=== PATIENT | male | born 1965 | race Caucasian/White ===

== ENCOUNTER 2025-02-01 15:59 | Emergency (ER) | payer OTHER, SELFPAY ==
[2025-02-01 16:03] VITALS: BP 185/109; PULSE 91; RESP 18; TEMP 37.4; O2SAT 96; BMI 51.7
--- NOTE | 2025-02-01 16:13 | ED.GENADULT ---
HPI - General Adult General Chief complaint: Skin/Abscess/Foreign Body Stated complaint: screw stuck in stomach Time Seen by Provider: 02/01/25 16:07 History of Present Illness HPI narrative: Patient presents to the emergency department complaining of a screw being stabbed into his abdomen. Patient states today at about 1515 he was working and a screw that was poking out of a board got snagged under his gear and stabbed into his abdomen. Patient at 1630 is officially retired as this was his last day of work. 59-year-old man presenting to the emergency department with concern of a screw stuck in his abdomen Screw is Inch and a quarter long with a cutting tip. He would anticipate that 3/8 in is in his abdomen. Tried to remove it but it hurt a little much; thought he should just be checked out maybe some anesthetic to help with removal. Related Data Home Medications ?Medication ?Instructions ?Recorded ?Confirmed atenolol .ROUTE 02/01/25 losartan .ROUTE 02/01/25 metformin .ROUTE 02/01/25 niacin-lovastatin PO 02/01/25 Allergies Allergy/AdvReac Type Severity Reaction Status Date / Time No Known Drug Allergies Allergy Verified 02/01/25 16:11 Review of Systems Status of ROS: Reports: 6 or more systems reviewed and unremarkable except as noted in History and below Exam Narrative: Exam Narrative: Very pleasant. NAD. Clean black wood screw poking out of umbilical area. No active bleeding. Mildly sore to manipulation. Const: Vital Signs, click to edit/add: Vital Signs - 24 hr 02/01/25 16:03 Temperature 99.4 F Pulse Rate [Right Pulse Oximeter] 91 Respiratory Rate 18 Blood Pressure [Ri ght Upper Arm] 185/109 H Pulse Oximetry 96 Oxygen Delivery Me thod Room Air Documenting provider has reviewed patient's vital signs: yes Course Vital Signs Vital signs: Initial Vital Signs Temperature 99.4 F 02/01/25 16:03 Temperature Source Temporal Artery Scan 02/01/25 16:03 Pulse Rate 91 02/01/25 16:03 Pulse Rhythm Regular 02/01/25 16:03 Pulse Strength 3+ Normal 02/01/25 16:03 Respiratory Rate 18 02/01/25 16:03 Blood Pressure 185/109 H 02/01/25 16:03 Blood Pressure Mean 134 H 02/01/25 16:03 Blood Pressure Position Sitting 02/01/25 16:03 Pulse Oximetry 96 02/01/25 16:03 Oxygen Delivery Method Room Air 02/01/25 16:03 Vital Signs Temperature 99.4 F 02/01/25 16:03 Pulse Rate 91 02/01/25 16:03 Respiratory Rate 18 02/01/25 16:03 Blood Pressure 185/109 H 02/01/25 16:03 Pulse Oximetry 96 02/01/25 16:03 Oxygen Delivery Method Room Air 02/01/25 16:03 Temperature 99.4 F 02/01/25 16:03 Pulse Rate 91 02/01/25 16:03 Respiratory Rate 18 02/01/25 16:03 Blood Pressure 185/109 H 02/01/25 16:03 Pulse Oximetry 96 02/01/25 16:03 Oxygen Delivery Method Room Air 02/01/25 16:03 Medical Decision Making MDM Narrative Medical decision making narrative: Injected lidocaine with epinephrine along side the screw. Removed without significant difficulty by unscrewing and pulling. Was fairly well adhered to tissue. Considering body habitus there should not be risk of visceral puncture 01/01 opening in skin. Would not suture this closed Then irrigated with normal saline under light pressure. Antibiotic ointment and Band-Aid placed. See patient discharge plan for further discussion Watch for purulent drainage, marked increase in swelling or pain, spreading redness after [address] antibiotic ointment and a Band-Aid for the next 5 days or so and then to a dry dressing/Band-Aid for a few more days. [place] on your [place] [facility]. Discharge Plan Discharge Clinical Impression: Foreign body in skin Patient Disposition: Home, Self-Care Condition: Improved Additional Instructions: Watch for purulent drainage, marked increase in swelling or pain, spreading redness after [address] antibiotic ointment and a Band-Aid for the next 5 days or so and then to a dry dressing/Band-Aid for a few more days. Best wishes on your [place] [facility]. Prescriptions: No Action metformin .ROUTE atenolol .ROUTE losartan .ROUTE niacin-lovastatin PO Stand Alone Forms: [facility] Inst[facility]
--- OUTSIDE RECORDS SUMMARY | 2025-02-01 17:10 | XMS_ITS | Clinical Summary ---
Author Organization [facility] Address [address] [place] [id number] Care Team Providers Care Buttonhole Facer Name Role Phone Reagan Tom MD Primary Care Provider Allergies Active Allergy Reactions Criticality Noted Date Comments Cyclobenzaprine Diarrhea,Nausea And Vomiting Medications aspirin enteric coated 81 mg tablet Take 1 tablet by mouth once daily with a meal. 0 4 Active cholecalciferol (VITAMIN D) 1,000 unit capsuleIndications :Vitamin D deficiency Take 1 capsule by mouth once daily. 0 5 Active blood sugar diagnostic (ONETOUCH VERIO) stripIndications:C ontrolled type 2 diabetes mellitus without complication, without long-term current use of insulin (HC) Dispense test strips covered by the patient insurance. Test 3 times per day. 100 Strip 12 8 Active lancets 33 gauge miscIndications:Co ntrolled type 2 diabetes mellitus without complication, without long-term current use of insulin (HC) As directed. 100 Each 12 8 Active ACCU-CHEK GUIDE ME GLUCOSE MTRIndications:Con trolled type 2 diabetes mellitus without complication, without long-term current use of insulin (HC) TEST ONCE DAILY 1 Device 0 Active ACCU-CHEK FASTCLIX LANCET DRUMIndications:Co ntrolled type 2 diabetes mellitus without complication, without long-term current use of insulin (HC) TEST ONCE DAILY 100 Each 3 0 Active ACCU-CHEK GUIDE TEST STRIPS stripIndications:C ontrolled type 2 diabetes mellitus without complication, without long-term current use of insulin (HC) TEST ONCE PER DAY 100 Strip 3 0 Active hydrocortisone (HYTONE) 2.5 % ointmentIndication s:Acute eczema APPLY TOPICALLY TO AFFECTED AREA(S) TWO TIMES A DAY 60 g 2 0 Active ammonium lactate 12% (LACHYDRIN) 12 % creamIndications:D ry skin Apply topically to affected area(s) 2 times daily. 140 g 2 Active BIPAPIndications:O SA (obstructive sleep apnea) BIPAP machine for home use at pressure: 14/10 cmw , full face mask x1/3month with a full face cushion x1/mo 1 Each 11 4 Active buPROPion (WELLBUTRIN SR) 100 mg Sustained-Release tabletIndications: Depression, major, in remission Take 1 Tablet (100 mg) by mouth once daily in the morning. 30 Tablet 3 5 Active lovastatin (MEVACOR) 20 mg tabletIndications: Mixed hyperlipidemia TAKE ONE TABLET BY MOUTH AT BEDTIME 90 Tablet 1 5 Active metFORMIN (GLUCOPHAGE XR) 500 mg Extended-Release tabletIndications: Controlled type 2 diabetes mellitus without complication, without long-term current use of insulin (HC) TAKE ONE TABLET BY MOUTH EVERY EVENING 90 Tablet 5 Active losartan (COZAAR) 25 mg tabletIndications: Essential hypertension with goal blood pressure less than 130/80 TAKE ONE TABLET BY MOUTH EVERY DAY 90 Tablet 5 Active atenoloL (TENORMIN) 50 mg tabletIndications: Essential hypertension with goal blood pressure less than 130/80 TAKE ONE TABLET BY MOUTH EVERY DAY 90 Tablet 5 Active Active Problems Problem Noted Date Diagnosed Date Encounter for screening colonoscopy 01/13/2024 Controlled type 2 diabetes m ellitus without complication, without long-term current use of insulin 04/15/2022 Generalized anxiety disorder 07/27/2018 Alcohol abuse 07/27/2018 Lumbar foraminal stenosis 08/18/2016 CADY 03/2015 AHI-113, non-supine 08/05/2016 Arthritis, lumbar spine 07/25/2016 Midline low back pain with left-sided sciatica 1 Ganglion, left wrist 06/10/2016 REBECA (generalized anxiety disorder) 05/19/2016 Asymmetrical left sensorineural hearing loss Rash and other nonspecific skin eruption 012 Morbid obesity 01/09/2011 GERD (gastroesophageal reflux disease) 9 Major depressive disorder, recurrent episode, mo derate 01/11/2009 Dysthymic disorder 01/11/2009 Other malaise and fatigue 08/23/2008 Mixed hyperlipidemia 08/23/2008 Seasonal affective disorder 08/23/2008 Unspecified essential hypertension 10/07/2007 Resolved Problems Problem Noted Date Diagnosed Date Resolved Date Severe recurrent major depre ssion without psychotic features 07/27/2018 07/27/2021 Vitamin D deficiency 12/31/2008 017 Encounters Date Type Department Care Team Description 01/03/[address] [phone] Reagan Tom MD Refill Request (Atenolol) 12/29/[address] [address] Reagan Tom MD Refill Request (Losartan, Atenolol) 12/17/[address] [phone] Reagan Tom MD Refill Request (Metformin) 11/12/[address] [address] Reagan Tom MD Refill Request (Lovastatin) 11/03/2024 2:50 PM BUTTERMILK DRIER OPERATOR Office Visit [address] [phone] Reagan Tom MD Physical; Immunization/Injectio n 11/03/2024 Travel from Last 3 Months Immunizations Immunization Administration Dates Next Due COVID-19 VACCINE SPIKEVAX (M ODERNA 50MCG/0.5ML) 12YO+ PFS 11/03/2024,10/15/2023 COVID-19 vaccine (PDP [employer] NTech 30mcg/0.3mL) 12YO+ BIVALENT PF, MDV 09/12/2022 COVID-19 vaccine ([employer] 30mcg/0.3mL) PF, MDV 01/22/2021,01/01/2021 INFLUENZA, IIV3 PF (AGE >= 6 MO) 11/03/2024 Influenza, IIV3 (Age >=3 years) 09/12/2013 Influenza, IIV4 10/15/2023,,07/26/2021,2019,08/03/2018,07/21/2016 Td (Age >=7 Years) 04/30/2005 Tdap 06/20/2011 Zoster (Shingrix-RZV, recombinant) 09/12/2022, Family History Medical History Relation Name Comments Diabetes Father Hypertension Father in sleep Cancer Maternal Grandfather Good Health Mother Relation Name Status Comments Father (Age 74) Maternal Grandfather Mother Alive Social History Tobacco Use Types Packs/Day Years Used Date Smoking Tobacco: Never Smokeless Tobacco: Current Snuff, Chew Last attempted to quit: 10/12/2013 Tobacco Cessation:Ready to Q uit: No; Counseling Given: Yes Comments:on and off since 2000 Alcohol Use Standard Drinks/Week Comments Yes 24 (1 standard drink = 0.6 oz pu re alcohol) case of beer per week PHQ-2 Answer Date Recorded PHQ-2 TOTAL SCORE 6 11/03/2024 Financial Resource Strain Answer Date R ecorded Difficulty of Paying Living Expenses Not on file 10/19/2021 Difficulty of Paying Living Expenses Not on file 10/19/2021 Sex and Gender Information Value Date Recorded Sex Assigned at Not on file Legal Sex Male 5:23 AM BUTTERMILK DRIER OPERATOR Gender Identity Not on file Sexual Orientation Not on file 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 Not on file Not on file Not on file Obstetrics History Last Filed Vital Signs Vital Sign Reading Time Taken Comments Blood Pressure 120/74 11/03/2024 2:16 PM BUTTERMILK DRIER OPERATOR Pulse 76 11/03/2024 2:16 PM BUTTERMILK DRIER OPERATOR Temperature 36.7 C (98.1 F) 10/24/2024 1:10 PM BUTTERMILK DRIER OPERATOR Respiratory Rate 20 11/03/2024 2:16 PM BUTTERMILK DRIER OPERATOR Oxygen Saturation 97% 10/24/2024 1:1 0 PM BUTTERMILK DRIER OPERATOR Inhaled Oxygen Concentration - - Weight 165.3 kg (364 lb 8 oz) 2:16 PM BUTTERMILK DRIER OPERATOR Height 177.2 cm (5' 9.75) 11/03/2024 2 :16 PM BUTTERMILK DRIER OPERATOR with boots on Body Mass Index 52.68 11/03/2024 2:16 PM BUTTERMILK DRIER OPERATOR Plan of Treatment Health Maintenance Due Date Last Done Comments HIV for age 15-65 1978 Pneumococcal series for age 50+ (1 of 2 - PCV) 1982 Tetanus booster 06/20/2021 06/20/2011, 04/30/2005 RSV vaccine for adults or (1 - Risk 60-74 years 1-dose series) 2023 BMI (ht and wt on same day) for age 18+ 11/03/2025 11/03/2024, 03/24/2024, 10/15/2023, Additional history exists Depression screening for age 12+ 11/03/2025 11/03/2024, 10/15/2023, 09/15/2022, Additional history exists Lipids for age 45-75 11/03/2029 11/03/2024, 10/15/2023, 09/15/2022, Additional history exists Colonoscopy through age 75 01/12/2034 01/13/2024, Tdap Completed 06/20/2011 Hepatitis C screening for ag e 18-79 Completed 02/09/2015 Zoster (shingles) series for age 50+ Completed 09/12/2022, 07/26/2021 COVID-19 vaccine series Completed 11/03/19, 10/15/2023, 09/12/2022, Additional history exists Influenza Vaccine Completed 11/03/2024, , 09/12/2022, Additional history exists Procedures Procedure Name Priority Date/Time Associated Diagnosis Comments HEMOGLOBIN A1C Routine 11/03/2024 3:29 PM BUTTERMILK DRIER OPERATOR Controlled type 2 diabetes mellitus without complication, without long-term current use of insulin (HC) BASIC METABOLIC PANEL Routine 11/03/2024 3:29 PM BUTTERMILK DRIER OPERATOR Essential hypertension with goal blood pressure less than 130/80 LIPID PANEL W REFLEX MEASURED LDL Routine 11/03/2024 3:29 PM BUTTERMILK DRIER OPERATOR Mixed hyperlipidemia COLONOSCOPY 01/13/2024 10:56 AM CDT ANTI HCV Routine 02/09/2015 7:50 AM CDT Routine general medical examination at a health care facility from Last 3 Months or Most Recently Relevant to Health Maintenance Results * (ABNORMAL) HEMOGLOBIN A1C (11/03/2024 3:29 PM BUTTERMILK DRIER OPERATOR) HEMOGLOBIN A1C 7.3(H) <5.7 % of total Hgb [facility] Comment: For someone without known diabetes, a hemoglobin A1c value of 6.5% or greater indicates that they may have diabetes and this should be confirmed with a follow-up test. For someone with known diabetes, a value <7% indicates that their diabetes is well controlled and a value greater than or equal to 7% indicates suboptimal control. A1c targets should be individualized based on duration of diabetes, age, comorbid conditions, and other considerations. Currently, no consensus exists regarding use of hemoglobin A1c for diagnosis of diabetes for children. Blood BLOOD SPECIMEN / Unknown 11/03/2024 3:29 PM BUTTERMILK DRIER OPERATOR 11/03/2024 3:32 PM BUTTERMILK DRIER OPERATOR Narrative [facility] - 11/04/2024 5:09 AM BUTTERMILK DRIER OPERATOR FASTING:NO FASTING: NO Reagan Tom MD CHEMISTRY Final Result [facility] [address] [place] [address], [facility] [address] [place] [address] * (ABNORMAL) LIPID PANEL W REFLEX MEASURED LDL (11/03/2024 3:29 PM BUTTERMILK DRIER OPERATOR) CHOLESTEROL, TOTAL 174 <200 mg/dL [facility] HDL CHOLESTEROL 37(L) > OR = 40 mg/dL [facility] TRIGLYCERIDES 147 <150 mg/dL [facility] LDL-CHOLESTEROL 111(H) mg/dL (calc) [facility] Comment: Reference range: <100 Desirable range <100 mg/dL for primary prevention; <70 mg/dL for patients with CHD or diabetic patients with > or = 2 CHD risk factors. LDL-C is now calculated using the Moises calculation, which is a validated novel method providing better accuracy than the Friedewald equation in the estimation of LDL-C. Michael RODARTE et al. SIMÓN. 2013;310(19): 7166-4346 (http://education.[employer]/faq/GNH003) CHOL/HDLC RATIO 4.7 <5.0 (calc) [facility] NON HDL CHOLESTEROL 137(H) <130 mg/dL (calc) [facility] Comment: For patients with diabetes plus 1 major ASCVD risk factor, treating to a non-HDL-C goal of <100 mg/dL (LDL-C of <70 mg/dL) is considered a therapeutic option. Blood BLOOD SPECIMEN / Unknown 11/03/2024 3:29 PM BUTTERMILK DRIER OPERATOR 11/03/2024 3:32 PM BUTTERMILK DRIER OPERATOR Narrative [facility] - 11/04/2024 5:09 AM BUTTERMILK DRIER OPERATOR FASTING:NO FASTING: NO us Reagan Tom MD CHEMISTRY Final Result [facility] [address] [place] [address], [facility] [address] [place] [address] * BASIC METABOLIC PANEL (11/03/2024 3:29 PM BUTTERMILK DRIER OPERATOR) [facility] GLUCOSE 98 65 - 139 mg/dL [facility] Comment: Non-fasting reference interval UREA NITROGEN (BUN) 17 7 - 25 mg/dL [facility] CREATININE 0.77 0.70 - 1.35 mg/dL [facility] EGFR 102 > OR = 60 mL/min/1. 73m2 [facility] BUN/CREATININE RATIO SEE NOTE: 6 (calc) [facility] Comment: Not Reported: BUN and Creatinine are within reference range. SODIUM 137 135 - 146 mmol/L [facility] POTASSIUM 4.6 3.5 - 5.3 mmol/L [facility] CHLORIDE 101 98 - 110 mmol/L [facility] CARBON DIOXIDE 27 20 - 32 mmol/L [facility] ELECTROLYTE BALANCE 9 7 - 17 mmol/L (calc) [facility] CALCIUM 9.8 8.6 - 10.3 mg/dL [facility] Blood BLOOD SPECIMEN / Unknown 11/03/2024 3:29 PM BUTTERMILK DRIER OPERATOR 11/03/2024 3:32 PM BUTTERMILK DRIER OPERATOR Narrative [facility] - 11/04/2024 5:09 AM BUTTERMILK DRIER OPERATOR FASTING:NO FASTING: NO us Reagan Tom MD CHEMISTRY Final Result [facility] [employer] [facility] [address] [place] [address], [facility] [address] [place] [address] * COLONOSCOPY (01/13/2024 10:56 AM CDT) 01/13/2024 10:5 6 AM CDT Narrative Transcriptions Jignesh Lomas MD - 01/13/2024 12:13 PM CDT Patient Name: Yogi Hill Procedure Date: 01/13/2024 Gender: Male Date of : 1965 Admit Type: Ambulatory Procedure: Colonoscopy Proceduralist: Jignesh Lomas MD [facility] MD: Reagan Tom Indications/Pre-Op Diagnosis: Screening for colorectal malignantneoplasm Medications: Propofol per Anesthesia Procedure Description: The patient had risks, benefits and alternatives explained to andgave informed consent. The patient had a stable cardiopulmonary status and judged an adequate candidate for conscious sedation. The endoscope [id number] was passed through the anus andadvanced to the cecum, identified by appendiceal orifice and ileocecal valve.The colonoscopy was performed without difficulty. The patient toleratedthe procedure well. The quality of the bowel preparation was good. The ileocecal valve, appendiceal orifice, and rectum were photographed. Complications: No immediate complications. Estimated Blood Loss & Specimen: Estimated blood loss: none. Findings: Hemorrhoids were found on perianal exam. A few small-mouthed diverticula were found in the sigmoid colon. A 2 mm polyp was found in the cecum. The polyp was sessile. The polyp was removed with a cold biopsy forceps. Resection and retrieval were complete. Verification of patient identification for the specimen was done. Estimated blood loss was minimal. The exam was otherwise without abnormality. There was a small lipoma, 8 mm in diameter, in the rectum. Impressions/Post-Op Diagnosis: - Hemorrhoids found on perianal exam. - Diverticulosis in the sigmoid colon. - One 2 mm polyp in the cecum, removed with a cold biopsy forceps. Resected and retrieved. - The examination was otherwise normal. Recommendation: - Discharge patient to home. - High fiber diet. - Continue present medications. - Await pathology results. - Repeat colonoscopy in 7-10 years for surveillance. Jignesh Lomas MD 01/13/2024 12:13:49 PM Note Initiated On: 01/13/2024 10:56 AM us Jignesh Lomas MD PROCEDURE ORD Final Resu lt * ANTI HCV (02/09/2015 7:50 AM CDT) HEPATITIS C ANTIBODY Non-Reacti ve Non-Reacti ve 02/09/2015 6:48 PM CDT [facility] Blood specimen (specimen) BLOOD SPECIMEN / Unknown [facility] / Unknown 02/09/2015 7:50 AM CDT 02/09/2015 7:50 AM CDT Narrative [facility] - 02/09/2015 6:48 PM CDT Antibodies to HCV not detected; does not exclude the possibility of exposure to HCV. us Ben Patton MD SEND OUTS Fin al Result [facility] [address] [place] [address], from Last 3 Months or Most Recently Relevant to Health Maintenance Insurance [facility] [employer] [id number] [facility] [place] [id number] Advance Directives * Full Code (Latest Code Status on File) Date Activated Date Inactivated Comments 01/13/2024 10:35 AM 01/13/2024 3:11 PM Question Answer Comments Code Status Discussion: Discussed * Full Code Date Activated Date Inactivated Comments 10/24/2014 1:36 PM 10/24/2014 6:07 PM * Full Code Date Activated Date Inactivated Comments 10/24/2014 11:11 AM 10/24/2014 1:36 PM Care Teams Buttonhole Facer Relationship Specialty Start Date End Date Reagan Tom MD [address] [place] [address] [place] [id number] PCP - General Family Practice 12/07/17
== END 2025-02-01 17:08 | disposition home or self-care (01) ==
LOC: ED 17:08
PROVIDERS: Emergency Provider Family Medicine
DX: S31.149A Puncture wound of abdominal wall with foreign body, unspecified quadrant without penetration into peritoneal cavity, initial encounter (principal); Y99.0 Civilian activity done for income or pay
CPT/HCPCS: 99282; 99283; 99284